=== PATIENT | male | born 1965 | race Hispanic/Latino ===

== ENCOUNTER 2019-02-18 11:47 | Inpatient (IN) | payer SELFPAY ==
[~2019-02-18] VITALS: Ht 177.8 cm; Wt 85.0 kg
[2019-02-18] MEDS ORDERED: ONDANSETRON HCL 4 MG/2 ML VIAL ONE (12:25)
[2019-02-18] MEDS ORDERED: MORPHINE SULFATE 4 MG/1ML SYG ONE (12:25)
[2019-02-18 12:36] LABS: BASOPHILS % (AUTO) 0.2 % (0.0-5.0); EOSINOPHILS % (AUTO) 7.5 % (0.0-8.0); HEMATOCRIT 40.8 % (42-54); LYMPHOCYTES % (AUTO) 16.9 % (21.0-51.0); MEAN CORPUSCULAR HEMOGLOBIN 34.8 pg (27.0-33.0); MEAN CORPUSCULAR HGB CONC 34.9 g/dL (32.0-36.0); MEAN CORPUSCULAR VOLUME 99.6 fL (79-99); MONOCYTES % (AUTO) 9.7 % (3.0-13.0); NEUTROPHILS % (AUTO) 65.7 % (40.0-77.0); PLATELET COUNT (AUTO) 168 K/uL (130-400); RED CELL DISTRIBUTION WIDTH 13.7 % (11.0-15.5); WHITE BLOOD COUNT (AUTO) 5.7 K/uL (4.8-10.8)
[2019-02-18 12:57] LABS: CREATININE 0.8 mg/dL (0.5-1.5); POTASSIUM 3.7 mmol/L (3.5-5.1)
[2019-02-18 13:02] LABS: ALBUMIN 3.5 g/dL (3.5-5.0); BILIRUBIN,TOTAL 0.5 mg/dL (0.2-1.0); TOTAL PROTEIN, SERUM 6.6 g/dL (6.0-8.3)
[2019-02-18] MEDS ORDERED: IOHEXOL-350 75 ML VIAL IV ONE (13:28)
[2019-02-18] MEDS: SODIUM CHLORIDE 0.9% 1000ML 1,000 ML IV SCH (16:56)
[2019-02-18] MEDS ORDERED: HYDRALAZINE HCL 20 MG/ML VIAL IV PRN (17:00)
[2019-02-18] MEDS ORDERED: ONDANSETRON HCL 4 MG/2 ML VIAL IV PRN (17:00)
[2019-02-18] MEDS ORDERED: MORPHINE SULFATE 2 MG/ML 1ML SYG IV PRN (17:00)
[2019-02-18] MEDS ORDERED: ACETAMINOPHEN 325 MG TAB PO PRN ×2 (17:00)
[2019-02-18] MEDS ORDERED: LACTULOSE 20 GM/30 ML UDCUP PO PRN (17:00)
[2019-02-18 19:00] VITALS: BP 121/77
--- NOTE | 2019-02-18 19:30 | NUR ---
ADMIT PT ADMITTED TO ROOM 311, AAOX3. NO ABDOMINAL PAINS REPORTED. ADMISSION ASSESSMENT DONE, PLEASE REFER TO CPOE. ADMISSION CARE DONE. ADMISSION DATA BASE COMPLETED. CONTINUED IVF OF NS FROM ER PLACED IN PUMP AND REGULATED AT 125CC/HR. ORIENTED TO ROOM AND UNIT. IN FOR MORE CARE AND MANAGEMENT. Addendum: 02/18/19 at 2149 by MASTER RENTERIA RN RN Amended: Links added.
[2019-02-18] MEDS: FAMOTIDINE/PF 20 MG/2 ML VIAL IV SCH (19:43)
[2019-02-18] MEDS ORDERED: ATORVASTATIN CALCIUM 40 MG TABLET PO SCH (21:00)
--- NOTE | 2019-02-18 22:00 | NUR ---
ROUNDS PT ALREADY ASLEEP WITH RESPIRATIONS EVEN AND UNLABORED. NO DISTRESS NOTED. KEPT RESTED AND COMFORTABLE. CALL LIGHT WITHIN REACH. WILL CONTINUE TO MONITOR.
[2019-02-18 23:00] VITALS: BP 113/75
[2019-02-19] MEDS: SODIUM CHLORIDE 0.9% 1000ML 1,000 ML IV SCH (00:31)
--- NOTE | 2019-02-19 01:59 | NUR ---
ROUNDS PT RESTING WELL. KEPT UNDISTURBED FOR NOW. WILL MONITOR PT.
[2019-02-19 03:00] VITALS: BP 110/71
--- NOTE | 2019-02-19 05:31 | NUR ---
ROUNDS PT RESTING WELL. NO CONCERNS VERBALIZED. NO DISTRESS NOTED. KEPT COMFORTABLE. FOR MORE CARE.
[2019-02-19 05:55] LABS: HEMATOCRIT 42.2 % (42-54); MEAN CORPUSCULAR HEMOGLOBIN 35.8 pg (27.0-33.0); MEAN CORPUSCULAR HGB CONC 35.6 g/dL (32.0-36.0); MEAN CORPUSCULAR VOLUME 100.6 fL (79-99); NUCLEATED RED BLOOD CELLS 0.1 % (0.0-0.19); PLATELET COUNT (AUTO) 151 K/uL (130-400); RED CELL DISTRIBUTION WIDTH 13.5 % (11.0-15.5); WHITE BLOOD COUNT (AUTO) 4.6 K/uL (4.8-10.8)
[2019-02-19 06:07] LABS: ALBUMIN 3.2 g/dL (3.5-5.0); BILIRUBIN,TOTAL 0.8 mg/dL (0.2-1.0); CREATININE 0.8 mg/dL (0.5-1.5); POTASSIUM 4.3 mmol/L (3.5-5.1); TOTAL PROTEIN, SERUM 6.3 g/dL (6.0-8.3)
[2019-02-19 08:00] VITALS: BP 118/76
--- NOTE | 2019-02-19 08:00 | NUR ---
AM SHIFT ASSESSMENT.
[2019-02-19] MEDS: FAMOTIDINE/PF 20 MG/2 ML VIAL IV SCH (08:40)
[2019-02-19] MEDS ORDERED: ENOXAPARIN SODIUM 40 MG/0.4 ML SYRINGE SQ SCH (09:00)
--- NOTE | 2019-02-19 09:00 | NUR ---
CM NOTE PT IS OBS STATUS AT THIS TIME . MAY DC LATER TODAY. YOUNG, AMBULATORY, AND NO NEEDS VOICED BY PT TO NURSING, NO TRIGGERS TO CM. IA DEFERRED AT THIS TIME Addendum: 02/20/19 at 0650 by CARITO CASTILLO RN CM Amended: Links added.
[2019-02-19] MEDS ORDERED: ATOR20TA65 PO (10:20)
[2019-02-19] MEDS ORDERED: PANT40TA PO (10:20)
[2019-02-19 12:00] VITALS: BP 121/73
--- NOTE | 2019-02-19 14:00 | NUR ---
UP AD ESE IN ROOM.
[2019-02-19 16:00] VITALS: BP 109/73
--- NOTE | 2019-02-19 16:00 | NUR ---
HAS CALLED FRIEND FOR TRANSPORTATION,WILL WAIT FOR FRIEND TO GET HERE.
--- NOTE | 2019-02-19 18:01 | NUR ---
DISCHARGED NOW USING TEACH BACK,INST.GIVEN AND VERBALIZED UNDERSTANDING. RX IN HAND FOR PROTONIX AND ATORVASTATIN. WILL FOLLOW UP WITH [facility].HAS BEEN THERE BEFORE. SALINE LOCK REMOVED NO C/O OR CONCERNS VOICED AT TIME OF DC. TO PRIVATE CAR NOW VIA W/C
== END 2019-02-19 18:50 | disposition home or self-care (01) | DRG 440 ==
LOC: EDH 11:47 → EDHIP 11:48 → OBSVTOIN 11:48 → 3BH 18:56
PROVIDERS: ADMIT Internal Medicine; ATTEND Internal Medicine
DX: K85.90 Acute pancreatitis without necrosis or infection, unspecified (principal); Z90.49 Acquired absence of other specified parts of digestive tract
CPT/HCPCS: 36415; 74177; 80053; 82150; 82550; 83690; 84478; 84484; 85025; 85027; 93005; G0378; J1650; J2270; J2405; J3490; Q9967